=== PATIENT | female | born 1990 | race Hispanic/Latino ===

== ENCOUNTER 2022-08-30 16:11 | Emergency (ER) | payer OTHER, SELFPAY ==
[2022-08-30 16:30] VITALS: BP 117/73; PULSE 76; RESP 16; TEMP 37; O2SAT 100
--- NOTE | 2022-08-30 17:00 | ED.GENADULT ---
HPI - General Adult General Chief complaint: Upper Respiratory Infection Stated complaint: runny nose,cough Source: patient Mode of arrival: ambulatory Limitations: no limitations History of Present Illness HPI narrative: Patient presents for evaluation of sinus symptoms since Thursday of this week. Symptoms include sinus congestion, pressure, thick brown-yellow discharge from her nares. No fever, chills, nausea, vomiting, sore throat, otalgia, respiratory symptoms. She has had similar symptoms in the past with bacterial conjunctivitis. She does not smoke. No recent sick contacts. No additional complaints or concerns Related Data Allergies Allergy/AdvReac Type Severity Reaction Status Date / Time amoxicillin Allergy Unknown Unknown Verified 08/30/22 16:57 Review of Systems Review of Systems: CONSTITUTIONAL: Denies fever, chills, or sweats. EYES: Denies visual changes, redness, or discharge. ENT: Reports sinus congestion, pressure and thick yellow/brown drainage CARDIOVASCULAR: Denies chest pain, palpitations, or edema. RESPIRATORY: Denies cough or dyspnea. GASTROINTESTINAL: Denies abdominal pain, nausea, vomiting, or diarrhea. GENITOURINARY: Denies dysuria or hematuria. SKIN: Denies rash or itching. MUSCULOSKELETAL: Denies back pain, joint pain, or myalgia. NEUROLOGIC: Denies headache, numbness, dizziness, or weakness. PSYCHIATRIC: Denies anxiety or depression. FORMERLY [facility] Past Medical History Medical History History of sinusitis Surgical History Surgical History No pertinent past surgical history Family History Family History Mother Unknown family medical history Social History Social History Smoking status: Never smoker Alcohol intake: current Alcohol use details: Social Substance use: never Living arrangements: with family Gender identity (if verbalized by the patient): Female Sexual Orientation (if Verbalized by the Patient): Straight or Heterosexual Spiritual care concerns: No Exam Narrative: GENERAL: Well-appearing, well-nourished, and in no acute distress. HEAD: Normocephalic, atraumatic. EYES: PERRLA and EOMI. ENT: Bilateral maxillary sinus tenderness. Nares clear, no rhinorrhea or epistaxis. Mucous membranes moist. There is some posterior pharyngeal erythema without exudate. Uvula is midline bilateral TMs pearly osorio nonbulging NECK: Supple. No adenopathy or masses. No carotid bruits or JVD CHEST: Clear to auscultation. No respiratory distress. No wheezes rales or rhonchi HEART: Regular rate and rhythm. No murmur heard. Normal peripheral pulses. ABDOMEN: Soft, nontender, nondistended, normal active bowel sounds. EXTREMITIES: Normal range of motion. No edema. SKIN: Warm, dry, no rash. NEURO: No focal deficits. Alert and oriented x3. PSYCH: Normal mood and affect. Course Course Emergency Course: This is a 31-year-old female who presented for evaluation of sinus symptoms. She meets criteria of ABRS based on nature of discharge. She has an allergy to amoxicillin so will be treated with azithromycin, which has been effective for her in the past. Follow-up outpatient for further evaluation and treatment and go to the ER for difficulty breathing or swallowing. Patient in agreement with plan of care. Level of Care: Express Care Visit Vital Signs Vital signs: Vital Signs Temperature 37.0 C 08/30/22 16:30 Pulse Rate 76 08/30/22 16:30 Respiratory Rate 16 08/30/22 16:30 Blood Pressure 117/73 08/30/22 16:30 Pulse Oximetry 100 08/30/22 16:30 Oxygen Delivery Room Air 08/30/22 16:30 Temperature 37.0 C 08/30/22 16:30 Pulse Rate 76 08/30/22 16:30 Respiratory Rate 16 08/30/22 16:30 Blood Pressure 117/73 08/30/22 16:30
== END 2022-08-30 17:04 | disposition home or self-care (01) ==
PROVIDERS: Emergency Provider Nurse Practitioner
DX: J34.9 Unspecified disorder of nose and nasal sinuses (principal)
CPT/HCPCS: 99203; G0463

== ENCOUNTER 2022-11-06 16:43 | Emergency (ER) | payer OTHER, SELFPAY ==
[2022-11-06 16:54] VITALS: BP 112/62; PULSE 67; RESP 18; TEMP 37.2; O2SAT 100
--- NOTE | 2022-11-06 17:18 | ED.URI ---
HPI - URI/Sore Throat General Chief Complaint: Upper Respiratory Infection Stated Complaint: uri Time Seen by Provider: 11/06/22 17:18 Source: patient, RN notes reviewed and old records reviewed Mode of arrival: ambulatory Limitations: no limitations History of Present Illness HPI Narrative: 32-year-old female presents to the [facility] with complaints of a URI. patient reports fever of 99 at home last night. Symptoms just started last night with sore throat and ear pain MD elicited complaint: sore throat Related Data Home Medications Medication Instructions Recorded Confirmed norethindrone 1 mg-ethinyl tablet 11/06/22 estradiol 20 mcg (21)-iron 75 mg (7) tablet (Blisovi Fe 12/19 (28)) Allergies Allergy/AdvReac Type Severity Reaction Status Date / Time amoxicillin Allergy Unknown Unknown Verified 11/06/22 17:02 Review of Systems Review of Systems: All systems reviewed & are unremarkable except as noted in HPI and below Constitutional: Constitutional: Reports no additional constitutional complaints Eyes: Eyes: Reports no additional eye complaints ENT: Reports as per HPI Cardiovascular: Cardiovascular: Reports no additional cardiovascular complaints, Denies chest pain and Denies dyspnea Respiratory: Respiratory: Reports no additional respiratory complaints, Denies chest congestion, Denies cough and Denies dyspnea Gastrointestinal: Gastrointestinal: Reports no additional gastrointestinal complaints, Denies abdominal pain, Denies nausea and Denies vomiting Musculoskeletal: Musculoskeletal: Reports no additional musculoskeletal complaints Integumentary/Breasts: Skin/Breast: Reports system reviewed and no additional complaints, except as docu Neurologic: Reports system reviewed and no additional complaints, except as documented Psychiatric: Psychiatric: Reports no additional psychiatric complaints Allergic/Immunologic: Allergic/Immunologic: Reports no additional allergic/immunologic complaints FORMERLY [facility], [facility] Past Medical History Medical History (Updated 11/07/22 @ 19:47 by Kyleigh Acosta APRN) History of sinusitis Surgical History Surgical History No pertinent past surgical history Family History Family History Mother Unknown family medical history Social History Social History Smoking status: Never smoker Alcohol intake: current Alcohol use details: Social Substance use: never Gender identity (if verbalized by the patient): Female Sexual Orientation (if Verbalized by the Patient): Straight or Heterosexual Spiritual care concerns: No Comments At the time of my signature, I reviewed and agree with the nursing past medical, surgical, social, and family history. There is no relevant family history pertinent to the patient complaint. Exam Const: General: cooperative, healthy appearing, comfortable, no acute distress, well developed, alert, average body habitus and well nourished Nutritional Appearance: average body habitus and well nourished Orientation/consciousness: patient oriented x3 Limitations: no limitations HENMT: Head: normal to inspection Ears: hearing grossly normal bilaterally, external ears normal and TM abnormal with fluid behind the TM bilateral ( worse on the right than the left) Face/Nose/Sinus: Normal external nose present, Normal nares present, Normal nasal mucous membranes and turbinates present and normal facial exam Face and sinus: normal facial exam Mouth: Yes Normal oral and palatal mucosa present, Yes lip normal and Yes moist mucous membranes Throat: posterior oropharynx normal and uvula midline Eyes: General: appearance normal, both eyes and all related structures Alignment and Position: alignment normal Periorbital: periorbital findings normal Conjunctivae: conjunctivae no
== END 2022-11-06 17:38 | disposition home or self-care (01) ==
PROVIDERS: Emergency Provider Nurse Practitioner
DX: H65.01 Acute serous otitis media, right ear (principal); J11.1 Influenza due to unidentified influenza virus with other respiratory manifestations
CPT/HCPCS: 99213; G0463

== ENCOUNTER 2022-11-11 13:24 | Emergency (ER) | payer OTHER, SELFPAY ==
--- NOTE | ~2022-11-11 | XR_ITS ---
EXAMINATION: XR chest 2V 11/11/2022 13:49 INDICATION: Cough and congestion PROCEDURE: 2 view chest COMPARISON: No prior studies for comparison. FINDINGS: The lungs are clear. The cardiomediastinal silhouette is within normal limits. There are no pleural effusions. There is no pneumothorax suspected. IMPRESSION: 1: NO ACUTE CARDIOPULMONARY DISEASE. Reviewed, dictated and finalized at location B. [employer]CE TECHNICIAN
--- NOTE | 2022-11-11 13:32 | ED.URI ---
HPI - URI/Sore Throat General Chief Complaint: Upper Respiratory Infection Stated Complaint: Shortness of Breath,Congestion,Cough Time Seen by Provider: 11/11/22 13:32 Source: patient Mode of arrival: ambulatory Limitations: no limitations History of Present Illness HPI Narrative: Ms. Chung is a 32-year-old female patient presenting to the clinic today with complaints of cough, shortness of breath, and congestion x5 days. She reports she has had some fever and chills. 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 States that she did have a history of asthma as a child and has also had pneumonia in the past. MD elicited complaint: cough, nasal congestion and other (Shortness of breath) Related Data Home Medications Medication Instructions Recorded Confirmed norethindrone 1 mg-ethinyl 1 tablet PO DAILY 11/06/22 11/11/22 estradiol 20 mcg (21)-iron 75 mg (7) tablet (Blisovi Fe 12/19 (28)) cetirizine 10 mg tablet (Zyrtec) 10 mg PO DAILY 11/11/22 11/11/22 Allergies Allergy/AdvReac Type Severity Reaction Status Date / Time amoxicillin AdvReac Intermediate Nausea and Verified 11/11/22 13:44 Vomiting Sulfa (Sulfonamide AdvReac Mild Rash Verified 11/11/22 13:44 Antibiotics) Review of Systems Review of Systems: Pertinent positives per HPI. Patient denies any rash, headache, visual changes, dizziness, chest pain, palpitations, nausea, vomiting, diarrhea, constipation, abdominal pain, or any urinary issues. FORMERLY [facility] Past Medical History Medical History History of sinusitis Surgical History Surgical History No pertinent past surgical history Family History Family History Mother Unknown family medical history Social History Social History Smoking status: Never smoker Alcohol intake: current Alcohol use details: Social Substance use: never Gender identity (if verbalized by the patient): Female Sexual Orientation (if Verbalized by the Patient): Straight or Heterosexual Spiritual care concerns: No Comments At the time of my signature, I reviewed and agree with the nursing past medical, surgical, social, and family history. There is no relevant family history pertinent to the patient complaint. Exam Narrative: General: Well-developed, well nourished, in no apparent distress Head: Normocephalic, atraumatic Eyes: Pupils equally round and reactive to light bilaterally, EOM intact, sclera and conjunctive clear, no discharge, lids normal Ears: TMs intact and clear, ear canals clear, no drainage, grossly hearing normal. Nose: Nares patent, clear nasal discharge, mild inflammation, mild sinus tenderness. Mouth: Oral pharynx without lesions or masses, good dentition, MMM. Postnasal drip Neck: Supple, trachea midline, no enlargement of anterior or posterior cervical nodes, no thyroid masses or goiter palpable. Cardio: Regular rate and rhythm, s1 and s2 normal, no murmur appreciated. Resp: Clear to auscultation bilaterally, no rhonchi, rales, wheezing or rubs Course Course Emergency Course: Portions of this record may have been created with voice recognition software. Level of Care: Express Care Visit Vital Signs Vital signs: Vital Signs Temperature 36.3 C L 11/11/22 13:40 Pulse Rate 90 11/11/22 13:40 Respiratory Rate 16 11/11/22 13:40 Blood Pressure 116/83 11/11/22 13:40 Pulse Oximetry 100 11/11/22 13:40 Oxygen Delivery Room Air 11/11/22 13:40 Temperature 36.3 C L 11/11/22 13:40 Pulse Rate 90 11/11/22 13:40 Respiratory Rate 16 11/11/22 13:40 Blood Pressure 116/83 11/11/22 13:40 Pulse Oximetry 100 11/11/22 13:40 Oxygen Delivery Room Air 11/11/22 13:40 Vital signs r
[2022-11-11 13:40] VITALS: BP 116/83; PULSE 90; RESP 16; TEMP 36.3; O2SAT 100
== END 2022-11-11 13:59 | disposition home or self-care (01) ==
PROVIDERS: Emergency Provider Nurse Practitioner Family
DX: J06.9 Acute upper respiratory infection, unspecified (principal); R05.9 Cough, unspecified; Z20.822 Contact with and (suspected) exposure to COVID-19
CPT/HCPCS: 71046; 87426; 99213; C9803; G0463

== ENCOUNTER 2023-02-19 16:37 | Emergency (ER) | payer OTHER, SELFPAY ==
[2023-02-19 17:00] VITALS: BP 107/65; PULSE 72; RESP 16; TEMP 36.7; O2SAT 100
--- NOTE | 2023-02-19 17:04 | ED.EYEPROB ---
HPI - Eye Problem General Chief complaint: Eye Problems Stated complaint: rt eye lid irritation/back pain Time Seen by Provider: 02/19/23 17:05 Source: patient Mode of arrival: ambulatory Limitations: no limitations History of Present Illness HPI Narrative: Yoseph is a 32-year-old female patient presenting to the clinic today with complaints of right itchy upper eyelid x2 months and possible pulled muscle to the right upper back times 1 week. States that she sneezed and injured her back. She has been taking ibuprofen as needed for the pain without relief. Patient denies any use of new soaps shampoos or makeup on her face. States that she has avoided using makeup on her face x1 week to see if this helps alleviate the itchy upper eyelid Related Data Home Medications Medication Instructions Recorded Confirmed loratadine 10 mg tablet (Claritin) 10 mg PO DAILY 02/19/23 02/19/23 Allergies Allergy/AdvReac Type Severity Reaction Status Date / Time amoxicillin AdvReac Intermediate Nausea and Verified 11/11/22 13:44 Vomiting Sulfa (Sulfonamide AdvReac Mild Rash Verified 11/11/22 13:44 Antibiotics) avocado AdvReac Swelling Verified 02/19/23 17:07 milk AdvReac Gastrointestinal Verified 02/19/23 17:07 Upset Review of Systems Review of Systems: Pertinent positives per HPI. Patient denies any fever, chills, rash, headache, visual changes, dizziness, cough, runny nose, sore throat, shortness of breath, chest pain, palpitations, nausea, vomiting, diarrhea, constipation, abdominal pain, or any urinary issues. PMFSH Past Medical History Medical History History of sinusitis Surgical History Surgical History No pertinent past surgical history Family History Family History Mother Unknown family medical history Social History Social History Smoking status: Never smoker Alcohol intake: current Alcohol use details: Social Substance use: never Living arrangements: with family Gender identity (if verbalized by the patient): Female Sexual Orientation (if Verbalized by the Patient): Straight or Heterosexual Spiritual care concerns: No Comments At the time of my signature, I reviewed and agree with the nursing past medical, surgical, social, and family history. There is no relevant family history pertinent to the patient complaint. Exam Narrative: General: Well-developed, well nourished, in no apparent distress Head: Normocephalic, atraumatic Eyes: Pupils equally round and reactive to light bilaterally, EOM intact, sclera and conjunctive clear, no discharge, left lids normal, right upper lid scaly with mild red rash Ears: TMs intact and clear, ear canals clear, no drainage, grossly hearing normal. Nose: Nares patent, no discharge, no inflammation, no sinus tenderness. Mouth: Oropharynx without lesions or masses, good dentition, MMM. Neck: Supple, trachea midline, no enlargement of anterior or posterior cervical nodes, no thyroid masses or goiter palpable. Cardio: Regular rate and rhythm, s1 and s2 normal, no murmur appreciated. Resp: Clear to auscultation bilaterally anteriorly and posteriorly, no rhonchi, rales, wheezing or rubs Musculoskeletal: No deformity, tender to palpation over the right trapezius musculature, pain reproduced with raising of the right arm over the right trapezius muscle, grossly normal range of motion, muscle strength strong and equal, peripheral pulse strong, no edema, no cyanosis, normal gait and station Course Course Emergency Course: Portions of this record may have been created with voice recognition software. Level of Care: Express Care Visit Vital Signs Vital signs: Vital Signs Temperature 36.7 C 02/19/23
== END 2023-02-19 17:09 | disposition home or self-care (01) ==
PROVIDERS: Emergency Provider Nurse Practitioner Family
DX: L30.9 Dermatitis, unspecified (principal); S46.811A Strain of other muscles, fascia and tendons at shoulder and upper arm level, right arm, initial encounter; X50.9XXA Other and unspecified overexertion or strenuous movements or postures, initial encounter; J45.909 Unspecified asthma, uncomplicated
CPT/HCPCS: 99213; G0463

== ENCOUNTER 2023-03-21 14:11 | Emergency (ER) | payer OTHER, SELFPAY ==
[2023-03-21 14:27] VITALS: BP 113/65; PULSE 82; RESP 16; TEMP 36.6; O2SAT 100
--- NOTE | 2023-03-21 14:31 | ED.GENADULT ---
HPI - General Adult General Chief complaint: Upper Respiratory Infection Stated complaint: Cough Time Seen by Provider: 03/21/23 14:32 Source: patient Mode of arrival: ambulatory Limitations: no limitations History of Present Illness HPI narrative: 32-year-old female patient presents to the [facility] with complaints of cough for the past 4 days. Patient states she has had asthma when she was younger but has not had any issues with it till recently. Patient states that she noticed that while at work they kept the doors open and when people were moan when their grass and days this past couple weeks her cough has increased. Patient states that the cough does improve with the use of in her inhaler. Denies fevers, body aches or chills. Denies chest pain or shortness of breath. Denies any congestion, runny nose or sneezing at this time. Patient states she does take Zyrtec daily. Related Data Home Medications Medication Instructions Recorded Confirmed loratadine 10 mg tablet (Claritin) 10 mg PO DAILY 02/19/23 03/21/23 levonorgestrel 120 mcg-e.estradiol See Rx Instructions .Route .COMPLEX 03/21/23 03/21/23 30 mcg/24 hr weekly transderm patch (Twirla) meclizine 25 mg tablet 25 mg PO TID PRN Dizziness 03/21/23 03/21/23 Allergies Allergy/AdvReac Type Severity Reaction Status Date / Time amoxicillin AdvReac Intermediate Nausea and Verified 03/21/23 14:17 Vomiting avocado AdvReac Intermediate Swelling Verified 03/21/23 14:17 milk AdvReac Intermediate Gastrointestinal Verified 03/21/23 14:17 Upset Sulfa (Sulfonamide AdvReac Mild Rash Verified 03/21/23 14:17 Antibiotics) Review of Systems Review of Systems: CONSTITUTIONAL: Denies fever, chills, or sweats. EYES: Denies visual changes, redness, or discharge. ENT: Denies rhinorrhea, congestion, sore throat, or otalgia. CARDIOVASCULAR: Denies chest pain, palpitations, or edema. RESPIRATORY: Positive cough or dyspnea. GASTROINTESTINAL: Denies abdominal pain, nausea, vomiting, or diarrhea. GENITOURINARY: Denies dysuria or hematuria. SKIN: Denies rash or itching. MUSCULOSKELETAL: Denies back pain, joint pain, or myalgia. NEUROLOGIC: Denies headache, numbness, or weakness. PSYCHIATRIC: Denies anxiety or depression. [facility] Past Medical History Medical History (Updated 03/21/23 @ 14:46 by MERRICK Singletary) Asthma History of sinusitis Surgical History Surgical History No pertinent past surgical history Family History Family History Mother Unknown family medical history Social History Social History Smoking status: Never smoker Alcohol intake: current Alcohol use details: Social Substance use: never Living arrangements: with family Gender identity (if verbalized by the patient): Female Sexual Orientation (if Verbalized by the Patient): Straight or Heterosexual Spiritual care concerns: No Comments At the time of my signature I agree with nursing past medical history, surgical, social, and family history. There is no relevant family history pertinent to the presenting complaint. Exam Narrative: GENERAL: Well-appearing, well-nourished, and in no acute distress. HEAD: Normocephalic, atraumatic. EYES: PERRLA and EOMI. ENT: Nares clear, no rhinorrhea or epistaxis. Mucous membranes moist. posterior pharynx with no erythema, tonsillar enlargement, exudates or lesions present. Bilateral TMs are clear no erythema or foreign bodies the canal. NECK: Supple. No lymphadenopathy CHEST: Clear to auscultation. No respiratory distress. No wheezing noted on auscultation HEART: Regular rate and rhythm. No murmur heard. Normal peripheral pulses. ABDOMEN: Soft, nontender, nondistended, normal active bowel sounds. EXTREMITIES: Normal range of motion. No edema. SKIN: Warm, dry, no rash. NE
== END 2023-03-21 14:50 | disposition home or self-care (01) ==
PROVIDERS: Emergency Provider Nurse Practitioner Family
DX: J45.998 Other asthma (principal)
CPT/HCPCS: 99213; G0463

== ENCOUNTER 2023-10-23 11:29 | Emergency (ER) | payer OTHER, SELFPAY ==
--- NOTE | 2023-10-23 11:53 | ED.URI ---
HPI - URI/Sore Throat General Chief Complaint: Upper Respiratory Infection Stated Complaint: Sore Throat,Congestion Source: patient and RN notes reviewed History of Present Illness HPI Narrative: 32 yo F presents to urgent care with complaints of cough and sore throat x 24 hours. Pt's daughter at side with same symptoms x 2 weeks. Mom denies any fevers, chills, chest pain, SOB, N/V/D, or ear pain. Related Data Home Medications Medication Instructions Recorded Confirmed loratadine 10 mg tablet (Claritin) 10 mg PO DAILY 02/19/23 10/23/23 levonorgestrel 120 mcg-e.estradiol See Rx Instructions .Route .COMPLEX 03/21/23 10/23/23 30 mcg/24 hr weekly transderm patch (Twirla) fluticasone 500 mcg-salmeterol 50 1 inh inhalation DIRECTED 10/23/23 10/23/23 mcg/dose blistr powdr for inhalation (Advair Diskus) Allergies Allergy/AdvReac Type Severity Reaction Status Date / Time amoxicillin AdvReac Intermediate Nausea and Verified 10/23/23 12:12 Vomiting avocado AdvReac Intermediate Swelling Verified 10/23/23 12:12 milk AdvReac Intermediate Gastrointestinal Verified 10/23/23 12:12 Upset Sulfa (Sulfonamide AdvReac Mild Rash Verified 10/23/23 12:12 Antibiotics) Review of Systems Review of Systems: Pertinent positives and pertinent negatives per HPI. FOR[facility]LY [facility] Past Medical History Medical History (Updated 10/23/23 @ 12:53 by Luda German, ALOK) Asthma History of sinusitis Surgical History Surgical History No pertinent past surgical history Family History Family History Mother Unknown family medical history Social History Social History Smoking status: Never smoker Alcohol intake: current Alcohol use details: Social Substance use: never Living arrangements: with family Gender identity (if verbalized by the patient): Female Sexual Orientation (if Verbalized by the Patient): Straight or Heterosexual Spiritual care concerns: No Comments At the time of my signature, I reviewed and agree with the nursing past medical, surgical, social, and family history. There is no relevant family history pertinent to the patient complaint. Exam Narrative: GENERAL: This is a well-nourished, well-developed patient, in no apparent distress. HEAD: normocephalic, atraumatic. EYES: Sclera clear/white. Vision is grossly intact. EARS: External ears normal, auditory canals clear and without drainage, TMs normal without perforation. Hearing grossly intact. NOSE: External nose normal with no obvious nasal discharge, nares without redness, no rhinorrhea. THROAT: Mucous membranes moist, posterior pharynx erythremic. NECK: Neck supple, non-tender without lymphadenopathy, masses or thyromegaly. CARDIOVASCULAR: Regular rate and rhythm without murmurs, gallops, or rubs. RESPIRATORY: Clear to auscultation. Breath sounds equal bilaterally. No wheezes, rales, or rhonchi. GASTROINTESTINAL: Abdomen soft, non-tender, nondistended. Bowel sounds are active. No hepato-splenomegaly, or palpable masses. No guarding. SKIN: warm, intact with no suspicious lesions or rash, good texture and turgor. NEURO: awake, alert, and oriented to person, place and time. There were no obvious focal neurologic abnormalities. Course Course Level of Care: Express Care Visit Vital Signs Vital signs: Vital Signs Temperature 97.6 F 10/23/23 12:04 Pulse Rate 83 10/23/23 12:04 Respiratory Rate 18 10/23/23 12:04 Blood Pressure 105/68 10/23/23 12:04 Pulse Oximetry 100 10/23/23 12:04 Oxygen Delivery Room Air 10/23/23 12:04 Temperature 97.6 F 10/23/23 12:04 Pulse Rate 83 10/23/23 12:04 Respiratory Rate 18 10/23/23 12:04 Blood Pressure 105/68 10/23/23 12:04 Pulse Oximetry 100 10/23/23 12:04 Oxygen Delivery Room Air
[2023-10-23 12:04] VITALS: BP 105/68; PULSE 83; RESP 18; TEMP 36.4; O2SAT 100
== END 2023-10-23 13:10 | disposition home or self-care (01) ==
PROVIDERS: Emergency Provider Nurse Practitioner Family
DX: J06.9 Acute upper respiratory infection, unspecified (principal); J45.909 Unspecified asthma, uncomplicated
CPT/HCPCS: 87081; 87880; 99213; G0463

== ENCOUNTER 2023-11-07 13:22 | Emergency (ER) | payer OTHER, SELFPAY ==
[2023-11-07 13:51] VITALS: BP 91/67; PULSE 82; RESP 18; TEMP 37.4; O2SAT 100
--- NOTE | 2023-11-07 14:26 | ED.EAR ---
HPI - Ear Problem General Chief complaint: Ear Stated complaint: bilateral ear discomfort,congestion Time Seen by Provider: 11/07/23 14:26 Source: patient Mode of arrival: ambulatory Limitations: no limitations History of Present Illness HPI Narrative: 33-year-old female presented for complaint of sinus pressure and congestion for over 2 weeks. Now reports nonproductive cough for about 3 days, and temp up to 100.5. Patient takes Zyrtec and Advair daily for asthma, and has started Flonase for symptoms. Used her albuterol inhaler a few times which she reports has helped the coughing. Denies shortness of breath, wheezing, nausea, vomiting or lethargy. MD Complaint: ear pain Related Data Home Medications Medication Instructions Recorded Confirmed fluticasone 500 mcg-salmeterol 50 1 inh inhalation DIRECTED 10/23/23 11/07/23 mcg/dose blistr powdr for inhalation (Advair Diskus) cetirizine 10 mg tablet 10 mg PO DAILY 11/07/23 11/07/23 norethindrone 1 mg-ethinyl 1 tablet PO DAILY 11/07/23 11/07/23 estradiol 20 mcg (21)-iron 75 mg (7) tablet ([place] Fe 12/19 (28)) Allergies Allergy/AdvReac Type Severity Reaction Status Date / Time amoxicillin AdvReac Intermediate Nausea and Verified 11/07/23 14:27 Vomiting avocado AdvReac Intermediate Swelling Verified 11/07/23 14:27 milk AdvReac Intermediate Gastrointestinal Verified 11/07/23 14:27 Upset Sulfa (Sulfonamide AdvReac Mild Rash Verified 11/07/23 14:27 Antibiotics) Review of Systems Review of Systems: CONSTITUTIONAL: Denies malaise, chills, or fever. EYES: Denies visual changes, redness, or discharge. ENT: Reports ear pain, rhinorrhea, congestion CARDIOVASCULAR: Denies chest pain, palpitations, or edema. RESPIRATORY: Denies cough or dyspnea. GASTROINTESTINAL: Denies abdominal pain, nausea, vomiting, diarrhea SKIN: Denies rash or itching. MUSCULOSKELETAL: Denies myalgia. NEUROLOGIC: Denies headache. All systems reviewed & are unremarkable except as noted in HPI and below PMFSH Past Medical History Medical History Asthma History of sinusitis Surgical History Surgical History No pertinent past surgical history Family History Family History Mother Unknown family medical history Social History Social History Smoking status: Never smoker Alcohol intake: current Alcohol use details: Social Substance use: never Living arrangements: with family Gender identity (if verbalized by the patient): Female Sexual Orientation (if Verbalized by the Patient): Straight or Heterosexual Spiritual care concerns: No Comments At time of signature, agree with nursing past medical, surgical, social and family history. There is no relevant family history pertinent to the presenting complaint Exam Narrative: GENERAL: Well-appearing EYES: conjunctivae clear ENT: Nares clear. Mucous membranes moist. TMs pearly osorio with normal light reflex and clear effusion bilaterally; no tragal tenderness. Oropharynx not erythematous, Tonsils not enlarged and without exudate, no drooling, no hoarseness, no trismus, uvula midline. NECK: Supple. No lymphadenopathy CHEST: Clear to auscultation, breath sounds equal. No wheezing, rhonchi, rales, or stridor. No respiratory distress, speaks in full sentences. HEART: Regular rate and rhythm. No murmur heard. SKIN: Warm, dry, no rash. NEURO: Alert and oriented x3. PSYCH: Normal mood and affect Course Course Emergency Course: Patient is aware of diagnosis, understands and agrees to treatment plan. Anticipatory guidance given. Patient agrees to follow-up as directed and is aware of reasons to seek care at the emergency department. Portions of this record may have been created with voice edgar
== END 2023-11-07 14:45 | disposition home or self-care (01) ==
PROVIDERS: Emergency Provider Nurse Practitioner Family
DX: J06.9 Acute upper respiratory infection, unspecified (principal); J45.909 Unspecified asthma, uncomplicated
CPT/HCPCS: 99211; G0463